=== PATIENT | female | born 1985 | race Two or more races ===

== ENCOUNTER 2016-09-30 17:27 | Emergency (ER) | payer MEDICAID ==
[~2016-09-30] VITALS: Ht 180.3 cm; Wt 165.6 kg
[2016-09-30 17:35] VITALS: BP 116/63
[2016-09-30] MEDS ORDERED: ONDANSETRON HCL 4 MG/2 ML VIAL IV ONE (19:30)
[2016-09-30] MEDS ORDERED: SODIUM CHLORIDE 0.9% 1,000 ML IV ONE (19:30)
== END 2016-09-30 20:28 | disposition home or self-care (01) ==
LOC: ER 17:27
DX: K52.9 Noninfective gastroenteritis and colitis, unspecified (principal); E86.0 Dehydration; T67.9XXA Effect of heat and light, unspecified, initial encounter; Y93.89 Activity, other specified; Y99.8 Other external cause status; Y92.89 Other specified places as the place of occurrence of the external cause
CPT/HCPCS: 96361; 96374; 99284; J2405; J7030